=== PATIENT | female | born 1930 | race Caucasian/White ===

== ENCOUNTER 2018-06-20 17:53 | Emergency (ER) | payer MEDICARE ==
--- NOTE | 2018-06-20 19:40 | RAD ---
TWO VIEW RIGHT HIP: 06/20/18 INDICATION: Fall with right hip pain. FINDINGS: There is moderate osteoarthritis. No acute fracture or dislocation. IMPRESSION: No acute osseous abnormality of the right hip. POS: [facility]
--- NOTE | 2018-06-20 19:41 | RAD ---
FRONTAL VIEW PELVIS: 06/20/18 INDICATION: Injury. Pain. There are scattered degenerative changes. There is ovoid density overlying the proximal left femur wh ich could relate to superimposition of a soft tissue calcification or alternatively sclerotic focus o f the proximal left femur, nonacute in appearance. Otherwise, no acute process. IMPRESSION: No acute osseous abnormality of the pelvis. POS: [facility]
--- NOTE | 2018-06-20 19:43 | CT ---
CT HEAD NONCONTRAST: 06/20/18 INDICATION: Fall with head injury. 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 Ventricular system is age appropriate in size. There is no intracranial hemorrhage, mass effect, or midline shift. No depressed calvarial fracture. IMPRESSION: No acute intracranial abnormalities. POS: [facility]
--- NOTE | 2018-06-20 20:06 | RAD ---
RIGHT SHOULDER THREE VIEWS: 06/20/18 INDICATION: Fall with pain. FINDINGS: There is moderate osteoarthritis. No fracture or dislocation is seen. IMPRESSION: No acute osseous abnormality of the right shoulder. POS: [facility]
--- NOTE | 2018-06-20 20:17 | CT ---
PELVIC CT WITHOUT CONTRAST: 06/20/18 HISTORY: Patient tripped and fell. Evaluate for right hip fracture. COMPARISON: None. FINDINGS: The visualized alimentary canal is unremarkable. Symmetric attenuation of the psoas muscles. Urinary bladder is unremarkable. The visualized alimentary canal demonstrates fecal material without evidence of obvious chronic obstruction. There is diffuse bone demineralization. There are degenerative gimenez es in the sacroiliac joints. Sacral ala are preserved. No evidence of an insufficiency fracture. The bony pelvis is intact. Hip joint spaces are symmetric. Both femoral heads are maintained. No evidence of fracture. There is a hypointense lesion with peripheral sclerosis involving the left intertrochan teric region, likely a benign process given the presence of sclerosis. IMPRESSION: 1. No evidence of a pelvic or hip fracture. 2. Sclerotic focus involving the left intertrochanteric region which is presumed to be benign. 3. If the patient unable to bear weight, orthopedic consultation can be performed. POS: [facility]
== END 2018-06-20 20:00 ==
LOC: ERS 17:53
DX: S70.01XA Contusion of right hip, initial encounter (principal); I48.91 Unspecified atrial fibrillation; E03.9 Hypothyroidism, unspecified; I10 Essential (primary) hypertension; Z86.73 Personal history of transient ischemic attack (TIA), and cerebral infarction without residual deficits; Z79.899 Other long term (current) drug therapy; W01.0XXA Fall on same level from slipping, tripping and stumbling without subsequent striking against object, initial encounter
CPT/HCPCS: 70450; 72170; 72192

== ENCOUNTER 2018-07-27 14:02 | Emergency (ER) | payer MEDICARE ==
[2018-07-27] MEDS ORDERED: Lidocaine 1% w/Epinephrine 1:100K 20 ML VIAL ONE (15:43)
--- NOTE | 2018-07-27 16:07 | CT ---
CT HEAD NONCONTRAST: 07/27/18 HISTORY: Fall. Head injury. COMPARISON: 06/20/18. FINDINGS: There is no evidence of acute intracranial hemorrhage or infarct. Diffuse cortical atrophy and chroni c ischemic small vessel disease are similar in appearance to the prior study. No mass effect or shift of midline structures. Scalp swelling and hematoma overlies the left supraorbital calvarium. Globes are intact. IMPRESSION: No acute intracranial abnormalities are demonstrated. POS: [facility]
--- NOTE | 2018-07-27 16:16 | RAD ---
LEFT SHOULDER 3 VIEWS: Date: 07/27/18 INDICATION: Pain. Fall. FINDINGS: There is osteoarthritis. No displaced fracture is seen. Heterotopic density is seen adjacent to the A C joint. IMPRESSION: Degenerative change of the left shoulder, without acute fracture visualized. POS: [facility]
--- NOTE | 2018-07-27 16:19 | CT ---
CT CERVICAL SPINE NONCONTRAST 07/27/18 HISTORY: Fall. Neck injury. FINDINGS: Vertebral body heights are maintained. There is disc space narrowing, end plate changes, and osteophy tosis at each level. Posterior elements are absent at the C4-5-6-7 levels from prior surgery. Cervico thoracic junction is intact. No acute fracture or dislocation. Significant bilateral foraminal stenos es throughout the cervical spine. There is calcification at each carotid bifurcation. IMPRESSION: Degenerative and postoperative changes of the cervical spine. No acute osseous abnormalities are demo nstrated. Atherosclerosis. POS: [facility]
--- NOTE | 2018-07-27 16:20 | RAD ---
TWO TO THREE VIEWS LEFT HIP SERIES 07/27/18 INDICATION: Fall with pain. FINDINGS: There is osteoarthritis of the left hip. Sclerotic density of the intertrochanteric region is present . No fracture or dislocation. IMPRESSION: No acute left hip fracture is identified. POS: [facility]
--- NOTE | 2018-07-27 16:21 | RAD ---
FRONTAL VIEW PELVIS: 07/27/18 INDICATION: Followup pain. FINDINGS: There are scattered degenerative changes without evidence of an acute fracture identified. There is a sclerotic density at the intertrochanteric region of the left femur. IMPRESSION: No acute fracture of the pelvis. POS: [facility]
[2018-07-27 16:45] LABS: #Lymphocytes 1.1 thou/uL (1.20-3.40); #Monocytes 1.1 thou/uL (0.11-0.59); #Neutrophils 11.6 thou/uL (1.40-6.50); %Basophils 0.1 % (0.0-1.0); %Eosinophils 0.2 % (0.0-10.0); %Lymphocytes 8.1 % (21.0-51.0); %Monocytes 7.7 % (0.0-10.0); %Neutrophils 83.9 % (42.0-75.0); Mean Corpuscular HGB CONC 31.8 g/dL (32.0-36.0); Mean Corpuscular Hemoglobin 28.7 pg (27.0-31.0); Mean Corpuscular Volume 90.2 fL (78.0-98.0); Platelet Count 165 thou/uL (130-400); RBC Distribution Width 12.7 % (11.5-14.5); Red Blood Cell (RBC) Count 5.22 mill/uL (4.20-5.40); White Blood Cell (WBC) Count 13.9 thou/uL (4.8-10.8)
[2018-07-27 17:05] LABS: ALT (SGPT) Less than 7 U/L (8-55); AST (SGOT) 19 U/L (5-34); Albumin 4.2 g/dL (3.4-4.8); Alkaline Phosphatase 53 U/L (40-150); Anion Gap 15 mmol/L (10-20); BUN (Urea Nitrogen) 16 mg/dL (9.8-20.1); Bilirubin, Total 2.3 mg/dL (0.2-1.2); CK (CPK) 38 U/L (29-168); Calc. Creatinine Clearance 0 mL/min (70-130); Calcium 9.7 mg/dL (7.8-10.44); Carbon Dioxide 24 mmol/L (23-31); Chloride 95 mmol/L (98-107); Estimated GFR-MDRD 63; Globulin 3.3 g/dL (2.4-3.5); Glucose 104 mg/dL (83-110); Potassium 4.1 mmol/L (3.5-5.1); Protein, Total 7.5 g/dL (6.0-8.3); Sodium 130 mmol/L (136-145)
[2018-07-27 17:10] LABS: CKMB 0.8 ng/mL (0-6.6); Troponin I Less than 0.010 ng/mL (< 0.028)
[2018-07-27] MEDS ORDERED: Bacitracin Zinc 1 Packet ONE (17:44)
[2018-07-27] MEDS ORDERED: Adacel (T-DAP) 0.5 ML VIAL ONE (17:44)
== END 2018-07-27 18:04 | disposition home or self-care (01) ==
LOC: ERS 14:02
DX: S01.81XA Laceration without foreign body of other part of head, initial encounter (principal); S70.02XA Contusion of left hip, initial encounter; S40.012A Contusion of left shoulder, initial encounter; E03.9 Hypothyroidism, unspecified; I48.91 Unspecified atrial fibrillation; I10 Essential (primary) hypertension; Z79.899 Other long term (current) drug therapy; Z86.73 Personal history of transient ischemic attack (TIA), and cerebral infarction without residual deficits; Z79.82 Long term (current) use of aspirin
CPT/HCPCS: 12011; 36415; 70450; 72125; 72170; 80053; 82553; 84484; 85025; 90471; 90715; 93005; J2001

== ENCOUNTER 2019-07-23 22:50 | Emergency (ER) | payer MEDICARE ==
--- NOTE | 2019-07-23 23:17 | RAD ---
EXAM: 2 views of the right femur HISTORY: Leg pain after falling off toilet COMPARISON: None FINDINGS: There is no evidence of acute fracture or dislocation. No soft tissue swelling is seen. No degenerative changes are seen in the hip. The patient has a right knee prosthesis without perihardware lucency. IMPRESSION: No evidence of acute osseous abnormality.
--- NOTE | 2019-07-23 23:18 | RAD ---
Exam: Single view of the pelvis HISTORY: Pelvic and hip pain COMPARISON: 07/27/2018 FINDINGS: A single view the pelvis shows no evidence of acute fracture or dislocation. No degenerativ e changes seen in either hip. Degenerative changes are seen in the lumbar spine. IMPRESSION: No evidence of acute osseous abnormality.
[2019-07-23] MEDS ORDERED: Acetaminophen 325 MG TAB ONE (23:43)
--- NOTE | 2019-07-23 23:52 | CT ---
EXAM: CT brain without contrast HISTORY: Parkinson's disease with fall COMPARISON: 07/27/2018 TECHNIQUE: Multiple contiguous axial images were obtained and a CT of the brain without contrast. FINDINGS: There are scattered hypodensities in the subcortical and periventricular white matter consi stent with small vessel ischemic disease. There is no evidence of hydrocephalus, intracranial hemorrhage, or extra-axial fluid collection. The calvarium and overlying soft tissues are unremarkable. The visualized paranasal sinuses and masto id air cells are well aerated. IMPRESSION: No evidence of acute intracranial abnormality
== END 2019-07-24 00:37 ==
LOC: ERS 22:50
DX: S09.90XA Unspecified injury of head, initial encounter (principal); I48.91 Unspecified atrial fibrillation; E03.9 Hypothyroidism, unspecified; I10 Essential (primary) hypertension; Z86.73 Personal history of transient ischemic attack (TIA), and cerebral infarction without residual deficits; Z79.899 Other long term (current) drug therapy; Z79.82 Long term (current) use of aspirin; W01.10XA Fall on same level from slipping, tripping and stumbling with subsequent striking against unspecified object, initial encounter
CPT/HCPCS: 70450; 72170